=== PATIENT | female | born 1985 | race Caucasian/White ===

== ENCOUNTER 2018-03-27 20:25 | Emergency (ER) | payer OTHER ==
[2018-03-27] MEDS ORDERED: ALBUTEROL 3 ML DEYVIAL IH ONE (21:14)
--- NOTE | 2018-03-27 21:31 | EDPHY ---
General - History Smoking Status: Never smoked Time Seen by Provider: 03/27/18 20:49 Narrative: CLINICAL IMPRESSION: Chest tightness, pleuritic chest discomfort ASSESSMENT/PLAN: 32-year-old why is a healthy female presents to the emergency department with 1 week of substernal chest tightness, pleuritic in nature, associated with shortness of breath and exercise intolerance. Patient arrives tachycardic at 115, no hypoxia or respiratory distress. No reproducible pain on palpation, no reported URI symptoms fever or chills. Chest x-ray with no acute cardiopulmonary disease. EKG was sinus tachycardia, reviewed with Dr. Coley, no abnormal ST or T-wave changes. D-dimer negative, troponin negative, no other significant lab abnormality, metabolic disturbance or electrolyte imbalance. Patient received an albuterol neb noted some improvement in her symptoms initially and subjective 40% overall improvement from arrival. Heart rate improved to 95 and she remains 98-100% on room air. Wells score 1.5 based on initial HR, PERC score 1 based on HR, heart score 0. No clinical signs of DVT. Low clinical suspicion for PE, ACS, dissection, pneumonia, or sepsis. Case discussed with Dr. Coley. She was given an albuterol inhaler with spacer to use at home and encouraged to see her PCP in 24-48 hours. Low threshold for return to ER sooner as outlined in person and discharge. DIFFERENTIAL DX: Differential diagnosis includes but not limited to myocardial ischemia, pulmonary embolus, chest wall pain, pleural inflammation, viral pleurisy musculoskeletal chest wall pain, reactive airway disease, asthma and pulmonary infectious causes, anxiety. ED PROCEDURES: See lab and/or imaging results below ED COURSE: 10:30 p.m.: Patient is test, states she felt better initially after neb treatment and that now she feels about 40% better from her initial arrival. Still having some chest tightness. States she was able to lay flat comfortably. Labs, EKG and chest x-ray results discussed with the patient. Case discussed with Dr. Coley as well. Heart rate improved to 95. Remains without hypoxia CHIEF COMPLAINT: Pleuritic chest pain, shortness of breath, chest tightness, palpitations HPI: 32-year-old female presents to the emergency department with 1 week of subjective anterior chest wall tightness, shortness of breath, and exercise intolerance. 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 She was trying an old albuterol inhaler but not noticing much benefit. She has no reported cardiac history, no first-degree family relative with cardiac history, she traveled to [place] by plane several weeks ago but otherwise no recent surgery. She is normally very active and participates in yoga however injured her wrist recently and has not been able to do much exercise. She is scheduled for surgery this week for that. No reported fever, chills or URI symptoms although she has she throat today. No rash. No history of DVT or PE and she has no swelling into the calf. PAST MEDICAL HISTORY: History of anxiety, past history of allergic reactions a distant history of asthma See nurse/triage notes for additional history if applicable Pertinent Past Surgical History: None reported although has upcoming right wrist surgery Family History: No family history of cardiac disease at a young age or family history of DVT or PE Social History: Nonsmoker, does not use estrogen based control, active, otherwise healthy REVIEW OF SYSTEMS: All other systems negative Constitutional: No fever, no chills, appetite change. Eyes: No discharge, vision change ENT: No sore throat, congestion, ear pain. Cardiovascular: Positive for chest pain, positive for palpitations. Respiratory: Positive for no shortness of breath. Gastrointestinal: No abdominal pain, no vomiting, diarrhea. Genitourinary: No hematuria, dysuria, flank pain, pelvic pain Musculoskeletal: No back pain, joint swelling, joint pain, myalgias. Skin: No rashes, color change. Neurological: No headache, dizziness, weakness. PHYSICAL EXAM: General Appearance: Alert, oriented, appropriate, cooperative, NAD, well hydrated, non-toxic appearing, tachycardic, on no hypoxia HEENT: TMs are clear bilaterally no perforation or FB, no injection, no evidence of serous or mucopurulent otitis. Oropharynx clear is no erythema or exudates, no tonsillar hypertrophy or asymmetry. Dentition without abnormality. Neck: Supple, nontender, no lymphadenopathy, no midline pain, FROM, no meningismus. Respiratory: There are no retractions, lungs are clear to auscultation. Cardiac: Tachycardic and rhythm, no murmurs or gallops. Gastrointestinal: Abdomen is soft, nontender, bowel sounds normal, no masses/ hernia, no rigidity, guarding or focal peritoneal findings. Neurological: [ Alert and oriented x 3, CN 2-12 grossly intact Skin: Warm, dry, no rashes, no nodules on palpation. Musculoskeletal: Extremities are symmetrical, full range of motion, no tenderness, deformity, swelling, or erythema. No calf asymmetry or tenderness Psychiatric: Patient is oriented X 3, there is no agitation. MEDICAL DECISION MAKING: Patient was seen independently. Secondary supervising physician at time of evaluation was Dr. Coley . Diagnosis: Pleuritic chest tightness, shortness of breath. New, requires workup Summary: See Assessment and Plan for summary of ED visit Clinical lab tests: ordered / reviewed. Independent visualization of images, tracing, or specimens: Yes. Decision to obtain medical records or history from someone other than the patient: None Review / Summarize previous medical records: None available Discussed patient with another provider: Dr. Coley Patient Progress: Improved. (Adolfo Castorena) The patient was evaluated and managed by the physician assistant manager trainee. I have reviewed this chart and I agree with the findings and plan of care as documented , as indicated by my signature. I am the secondary supervising physician. ( Charo Coley) - Diagnostics EKG Interpretation: 12 lead EKG is interpreted in [place] by emergency department physician. (Charo Coley) Imaging Results: Imaging Impressions Chest X-Ray 03/27/18 21:13 Impression: Normal chest x-ray. - Objective Vital Signs: Initial Vital Signs Temperature (C) 36.8 C 03/27/18 20:31 Heart Rate 97 03/27/18 20:31 Respiratory Rate 18 03/27/18 20:31 Blood Pressure 131/87 H 03/27/18 20:31 O2 Sat (%) 98 03/27/18 20:31 O2 Delivery Mode Room Air Allergies/Adverse Reactions: bee venom protein (honey bee) Allergy (Verified 03/27/18 20:36) carisoprodol [From Soma] Allergy (Verified 03/27/18 20:36) codeine Allergy (Verified 03/27/18 20:36) lillies Allergy (Uncoded 03/27/18 20:36) Home Medications: Medication Instructions Recorded Albuterol 09/27/15 Zofran Odt 09/27/15 EPINEPHrine [Epipen 0.3 MG] 0.3 mg IM ONCE #2 syr 11/06/17 Celexa 03/27/18 Laboratory Results: Laboratory Results 03/27/18 21:37 03/27/18 21:37 03/27/18 03/27/18 03/27/18 21:42 21:37 21:37 WBC RBC Hgb Hct MCV MCH MCHC RDW Plt Count MPV Neut % (Auto) Lymph % (Auto) [place] % (Auto) Eos % (Auto) Baso % (Auto) Nucleat RBC Rel Count Absolute Neuts (auto) Absolute Lymphs (auto) Absolute Monos (auto) Absolute Eos (auto) Absolute Basos (auto) Absolute Nucleated RBC Immature Gran % Immature Gran # D-Dimer < 0.27 ug/mLFEU ug/mLFEU (0.00-0.50) Sodium 137 mEq/L mEq/L (135-145) Potassium 3.7 mEq/L mEq/L (3.5-5.2) Chloride 105 mEq/L mEq/L (97-110) Carbon Dioxide 23 mEq/l mEq/l (22-31) Anion Gap 9 mEq/L mEq/L (6-14) BUN 13 mg/dL mg/dL (7-23) Creatinine 0.7 mg/dL mg/dL (0.6-1.0) Estimated GFR > 60 Glucose 108 mg/dL H mg/dL (70-100) Calcium 9.9 mg/dL mg/dL (8.5-10.4) POC Troponin I 0.00 ng/mL ng/mL (0.00-0.08) 03/27/18 21:37 WBC 10.54 10^3/uL H 10^3/uL (3.80-9.50) RBC 4.75 10^6/uL 10^6/uL (4.18-5.33) Hgb 14.6 g/dL g/dL (12.6-16.3) Hct 41.3 % % (38.0-47.0) MCV 86.9 fL fL (81.5-99.8) MCH 30.7 pg pg (27.9-34.1) MCHC 35.4 g/dL g/dL (32.4-36.7) RDW 12.0 % % (11.5-15.2) Plt Count 459 10^3/uL H 10^3/uL (150-400) MPV 9.4 fL fL (8.7-11.7) Neut % (Auto) 56.9 % % (39.3-74.2) Lymph % (Auto) 32.3 % % (15.0-45.0) [place] % (Auto) 5.8 % % (4.5-13.0) Eos % (Auto) 4.2 % % (0.6-7.6) Baso % (Auto) 0.6 % % (0.3-1.7) Nucleat RBC Rel Count 0.0 % % (0.0-0.2) Absolute Neuts (auto) 6.01 10^3/uL 10^3/uL (1.70-6.50) Absolute Lymphs (auto) 3.40 10^3/uL H 10^3/uL (1.00-3.00) Absolute Monos (auto) 0.61 10^3/uL 10^3/uL (0.30-0.80) Absolute Eos (auto) 0.44 10^3/uL H 10^3/uL (0.03-0.40) Absolute Basos (auto) 0.06 10^3/uL 10^3/uL (0.02-0.10) Absolute Nucleated RBC 0.00 10^3/uL 10^3/uL (0-0.01) Immature Gran % 0.2 % % (0.0-1.1) Immature Gran # 0.02 10^3/uL 10^3/uL (0.00-0.10) D-Dimer Sodium Potassium Chloride Carbon Dioxide Anion Gap BUN Creatinine Estimated GFR Glucose Calcium POC Troponin I Medications Given: Discontinued Medications Albuterol (Proventil Neb) 3 ml IH EDNOW ONE Stop: 03/27/18 21:15 Last Admin: 03/27/18 21:25 Dose: 3 ml Albuterol Sulfate (Proventil Inh Prepack) 1 mdi TAKEHOME EDNOW ONE Stop: 03/27/18 22:56 Last Admin: 03/27/18 23:04 Dose: 1 mdi Point of Care Test Results: Chemistry 03/27/18 21:42 POC Troponin I 0.00 ng/mL ng/mL (0.00-0.08) Departure - Departure Disposition: Home, Routine, Self-Care Clinical Impression: Chest tightness or pressure, Anterior pleuritic pain Instructions: Chest Pain (ED) Additional Instructions: DISCHARGE INSTRUCTIONS FROM YOUR DOCTOR Thank you for visiting our emergency department today. Please keep in mind that discharge from the emergency department does not mean that there is nothing wrong - it simply means that we have not identified an emergency condition that requires further evaluation or treatment in the hospital. You should always plan to follow up with primary care for re-evaluation of your condition in the next 2-3 days. If you have been referred to a specialist, please call as soon as possible (today or tomorrow) to schedule your follow up appointment at the appropriate time. YOUR DIAGNOSTIC WORKUP IN THE ER INCLUDED CHEST XRAY, EKG, CARDIAC ENZYMES, D- DIMER AND LABS. YOU ALSO RECEIVED AN ALBUTEROL NEB TREATMENT WITH SOME IMPROVEMENT IN SYMPTOMS. YOUR CHEST XRAY IS NORMAL, YOUR LABS ARE UNREMARKABLE AND CARDIAC ENZYMES ARE NEGATIVE. YOUR CASE WAS DISCUSSED WITH DR. COLEY, OUR ED ATTENDING PHYSICIAN. WE ARE DISCHARGING YOU WITH AN ALBUTEROL INHALER TO USE WITH A SPACER EVERY 4 HOURS. PLEASE SEE A PRIMARY CARE DOCTOR IN 24-48 HOURS. RETURN TO THE ER SOONER FOR WORSENING CHEST PAIN/TIGHTNESS, WORSENING SHORTNESS OF BREATH, FEVER, LIGHTHEADEDNESS, FAINTING EPISODES, OR ANY OTHER CONCERNS. People present with illnesses and injuries in different ways, and it is always possible that we have missed something. You may always return for re-evaluation if symptoms worsen or if they are not improving or if you develop new/different symptoms. Again, thank you for choosing our emergency department. We hope that you feel better. Referrals: Kleber Mcdowell MD [Primary Care Provider] - 1-2 days without fail
[2018-03-27 21:47] LABS: PLATELET COUNT 459 10^3/uL (150-400)
[2018-03-27 22:28] VITALS: BP 122/89
[2018-03-27] MEDS ORDERED: ALBUTEROL INH PREPACK MDI TAKEHOME ONE (22:55)
--- NOTE | 2018-03-28 00:48 | CPEKG ---
Test Reason : OPEN Blood Pressure : / mmHG Vent. Rate : 104 BPM Atrial Rate : 105 BPM P-R Int : 138 ms QRS Dur : 087 ms QT Int : 321 ms P-R-T Axes : 080 106 005 degrees QTc Int : 423 ms Sinus tachycardia Right atrial enlargement Borderline right axis deviation Borderline T wave abnormalities Confirmed by Charo Blood ([id number]) on 03/28/2018 12:48:14 AM Referred By: Confirmed By:Charo Blood
== END 2018-03-27 23:11 | disposition home or self-care (01) ==
DX: R07.89 Other chest pain (principal); R07.81 Pleurodynia; R06.02 Shortness of breath
CPT/HCPCS: 84484-PO; J7613